=== PATIENT | male | born 1960 | race Caucasian/White ===

== ENCOUNTER 2020-12-06 09:06 | Observation (INO) ==
--- NOTE | 2020-12-06 09:45 | DR.URIAD ---
HPI Time Seen Time Seen by Provider: 12/06/20 09:42 PCP Primary Care Physician: Margarita TORO HPI Comment HPI Comment: PATIENT IS 60YR OLD MALE IN ER WITH INCREASING SOB, COUGHAND CONGESTION TIMES 8 DAYS. TOOK ZPACK AND PREDNISONE AND COVID TEST DONE. WAS POSITIVE 2 DAYS LATER. CONTINUE TO HAVE FEVER ON AND OFF, GENERALIZED BODY ACHES, PRODUCTIVE COUGH, CLEAR SYMTOM AND GENERALIZED WEAKNESS. HISTORY SLEEP APNEA AND USES C-PAP AT NIGHT. Complaint Chief Complaint Doctors Comments: COUGH, CONGESTION, INCREASING SOB TIMES 8DAYS. COVID 19 VIRUS POSITIVE. Chief Complaint:: PT C/O COUGH AND LOW O2 SAT. HE IS COVID POSITIVE. SYMPTOMS STARTED 8 DAYS AGO AND POSITIVE RESULT WAS 6 DAYS AGO. PT STATES HE HAS A PAINFUL COUGH AND ONLY FEELS SHORT OF BREATH WHEN COUGHING. COVID-19 Coronavirus risk:travel/contact w/high risk person: No Has patient experienced Coronavirus symptoms: Yes Coronavirus symptoms experienced: Coughing Reviewed Nurses Notes Reviewed: Yes Source History Provided: Patient Mode of Arrival Mode of Arrival: Ambulatory Timing Onset of Chief Complaint: 11/27/20 Context Recent Treated Infections: URI History of Respiratory: None Quality Quality of Cough: Productive and Clear Rhinorrhea: Clear Shortness of Breath: Moderate Associated Signs and Symptoms Other Signs and Symptoms: Cough, Fever, Myalgias, Nasal Symptoms, Nausea, Shortness of Breath and URI Other History Other History: HISTORY SLEEP APNEA. PMH PMH Past Medical History: No Past Medical History: Hypertension and Sleep Apnea Past Surgical History: No Family History History of Family Medical Conditions: No Social History Does patient currently use any type of tobacco product: No Have you used tobacco products in the last 12 months: No Type of Tobacco Use: None Does any household member use tobacco: No Alcohol Use: None Do you use any recreational Drugs:: No Lives With: Family Lives Where: Home Travel Risk Coronavirus risk:travel/contact w/high risk person: No Has patient experienced Coronavirus symptoms: Yes Coronavirus symptoms experienced: Coughing Infectious screening In the last 2 months have you had wt loss of >10#?: NO Have you had fever, night sweats or hemotysis?: No Have you traveled outside the country in the last 6 months?: No Isolation: Droplet ROS Review of Systems Constitutional: See HPI, Fever (ON AND OFF FEVER.), Weakness and Fatigue Eyes: No Symptoms Reported and See HPI ENTM: See HPI, Nose Discharge and Nose Congestion Respiratoy: See HPI, Productive Cough and Short of Breath; negative Wheezing Cardiovascular: No Symptoms Reported, See HPI and Chest Pain (PLEURIC CHEST PAIN.); negative Edema and Palpitations Gastrointestinal/Abdominal: See HPI and Nausea; negative Abdominal Pain, Diarrhea and Vomiting Genitourinary: No Symptoms Reported and See HPI; negative Dysuria, Frequency and Hematuria Neurological: See HPI, Headache and Weakness Musculoskeletal: See HPI and Muscle Pain; negative Back Pain Integumentary: No Symptoms Reported and See HPI; negative Change in Color, Rash and Juandice Hematologic/Lymphatic: No Symptoms Reported and See HPI; negative Easy Bruising and Swollen Glands Endocrine: No Symptoms Reported and See HPI; negative Increased Thirst and Increased Urine Psychiatric: No Symptoms Reported and See HPI All Other Systems: Reviewed and Negative PE Vital Signs Vitals: Temperature 98.7 F Pulse Rate 62 Respiratory Rate 20 Blood Pressure 158/72 O2 Sat by Pulse Oximetry 94 General Limitations: No Limitations General Appearance: Alert and In No Apparent Distress Head Head Exam: Normal Inspection and Atraumatic Eyes Eye exam: Normal Appearance and PERRL ENT ENT Exam: Normal Exam, Normal Oropharynx, Normal External Ear Exam and TM's Normal Bilaterally External Ear Exam: Normal External Inspection; negative Mastoid Tenderness TM/Canal Exam: Bilateral: Normal Nose Exam: Normal Nose Exam Mouth Exam: Normal Inspection; negative Lip Swelling and Tongue Swelling Throat Exam: Normal Inspection and Tonsillar Erythema; negative Tonsillomegaly and Tonsillar Exudate Neck Neck Exam: Normal Inspection and Trachea Midline; negative Tenderness and Lymphadenopathy Chest Chest Inspection: Normal Inspection; negative Symmetric Chest Wall Rise, Tenderness and Abscess Respiratory Respiratory Exam: Normal Lung Sounds Bilat Respiratory Exam: Bilateral: Rhonchi and Lower: Rhonchi Cardiovascular Cardiovascular Exam: Regular Rate, Normal Rhythm, Normal Heart Sounds, Systolic Murmur and Diastolic Murmur Abdominal Exam Abdominal Exam: Normal Inspection, Normal Bowel Sounds and Soft; negative Tenderness Extremeties Extremities Exam: Normal Inspection and Normal Capillary Refill; negative Tenderness, Edema and Calf Tenderness Back Back Exam: Normal Inspection; negative (R) CVA Tenderness and (L) CVA Tenderness Neurologic Neurological Exam: Alert, Oriented X3 and CN II-XII Intact; negative Motor Sensory Deficit Psychiatric Psychiatric Exam: Normal Affect and Normal Mood Skin Skin Exam: Warm, Dry, Intact and Normal Color MDM Additional Information Additional Information Obtained From: Family Differential Diagnosis Differential Diagnosis: Pneumonia (COVID 19 VIRUS INFECTION, PULMONARY EMBOLISM. CHEST WALL PAIN), Sinsusitis and URI COURSE Treatment Treatment: SEE ORDERS. Consultation Consultation Comments: DISCUSSED PATIENTWITH DR. REED. HE WILL ADMIT PATIENT. Education/Counseling Education/Counseling: Patient Educated On: Diagnosis ROR Labs Reviewed Laboratory Results Reviewed?: Yes Result Diagrams: 12/09/20 04:20 12/09/20 04:20 Laboratory: WBC 7.3 X10^3/uL (3.6-10.0) 12/06/20 10:07 RBC 4.94 X10^6/uL (4.7-6.0) 12/06/20 10:07 Hgb 14.3 g/dL (13.5-18.0) 12/06/20 10:07 Hct 42.2 % (42.0-54.0) 12/06/20 10:07 MCV 85.5 fL (80.0-100.0) 12/06/20 10:07 MCH 28.9 pg (27.0-34.0) 12/06/20 10:07 MCHC 33.9 g/dL (33.0-35.0) 12/06/20 10:07 RDW 12.9 % (11.6-16.5) 12/06/20 10:07 Plt Count 237 X10^3/uL (150.0-450.0) 12/06/20 10:07 MPV 8.5 fL (7.4-11.0) 12/06/20 10:07 Neut % (Auto) 72.2 % (42.0-75.0) 12/06/20 10:07 Lymph % (Auto) 15.2 % (21.0-51.0) L 12/06/20 10:07 Saunders % (Auto) 10.9 % (0.0-13.0) 12/06/20 10:07 Eos % (Auto) 0.8 % (0.9-2.9) L 12/06/20 10:07 Baso % (Auto) 0.9 % (0.2-1.0) 12/06/20 10:07 Neut # (Auto) 5.3 x10^3/uL (2.2-4.8) H 12/06/20 10:07 Lymph # (Auto) 1.1 X10^3/uL (1.3-2.9) L 12/06/20 10:07 Saunders # (Auto) 0.8 x10^3/uL (0.3-0.8) 12/06/20 10:07 Eos # (Auto) 0.1 x10^3/uL (0.0-0.2) 12/06/20 10:07 Baso # (Auto) 0.1 X10^3/uL (0.0-0.1) 12/06/20 10:07 Absolute Nucleated RBC 0.1 /100WBC 12/06/20 10:07 PT 14.5 SECONDS (11.8-14.3) 12/06/20 10:07 INR Target Range - 12/06/20 10:07 INR 1.18 (0.8-1.3) 12/06/20 10:07 APTT 31.5 SECONDS (22.9-36.5) 12/06/20 10:07 PTT Comment - 12/06/20 10:07 D-Dimer 0.78 ug/ml (0.0-0.57) H* 12/06/20 10:07 Sample Site Rr 12/06/20 10:00 ABG pH 7.490 (7.35-7.45) H 12/06/20 10:00 ABG pCO2 39.0 mmHg (35.0-45.0) 12/06/20 10:00 ABG pO2 53.0 mmHg (80.0-100.0) L 12/06/20 10:00 ABG HCO3 29.7 mmol/L (22-26) H 12/06/20 10:00 ABG O2 Saturation 90.0 % (90-100) 12/06/20 10:00 ABG Base Excess 5.9 mmol/L (-2.0-2.0) H 12/06/20 10:00 Marvel Test Pos 12/06/20 10:00 A-a Gradient 48.0 mmHg 12/06/20 10:00 FiO2 21.0 12/06/20 10:00 Blood Gas Comments Jong well, kh 12/06/20 10:00 Sodium 139 mmol/L (136-145) 12/06/20 10:07 Corrected Sodium TNP 12/06/20 10:07 Potassium 4.0 mmol/L (3.5-5.1) 12/06/20 10:07 Chloride 101 mmol/L (98-107) 12/06/20 10:07 Carbon Dioxide 31.5 mmol/L (21-32) 12/06/20 10:07 BUN 23 mg/dL (7-18) H 12/06/20 10:07 Creatinine 1.20 mg/dL (0.70-1.30) 12/06/20 10:07 Est GFR (MDRD) Af Amer > 60 (>60) 12/06/20 10:07 Est GFR (MDRD) Non-Af > 60 (>60) 12/06/20 10:07 Glucose 104 mg/dL (65-99) H 12/06/20 10:07 Calcium 8.5 mg/dL (8.5-10.1) 12/06/20 10:07 Corrected Calcium 9.4 mg/dL (8.5-10.1) 12/06/20 10:07 Ferritin > 1000 ng/mL (26-388) H 12/06/20 10:07 Total Bilirubin 0.80 mg/dL (0.2-1.0) 12/06/20 10:07 AST 28 Units/L (15-37) 12/06/20 10:07 ALT 43 Units/L (12-78) 12/06/20 10:07 Alkaline Phosphatase 37 Units/L (46-116) L 12/06/20 10:07 Lactate Dehydrogenase 262 Units/L (85-227) H 12/06/20 10:07 Creatine Kinase 223 Units/L (39-308) 12/06/20 11:29 CK-MB (CK-2) < 1.0 ng/mL (0-4.0) 12/06/20 11:29 CK/CKMB % Calc 0.5 % (<4) 12/06/20 11:29 Troponin I < 0.02 ng/mL (0-1.5) 12/06/20 11:29 C-Reactive Protein 62.10 mg/L (0-3.0) H 12/06/20 10:07 Total Protein 7.3 g/dL (6.4-8.2) 12/06/20 10:07 Albumin 2.9 g/dL (3.4-5.0) L 12/06/20 10:07 Globulin 4.4 g/dL (2.5-4.5) 12/06/20 10:07 Albumin/Globulin Ratio 0.7 Ratio (1.1-2.1) L 12/06/20 10:07 Specimen Type Random urine 12/06/20 11:30 Urine Color Yellow (YELLOW) 12/06/20 11:30 Urine Appearance Clear (CLEAR) 12/06/20 11:30 Urine pH 8.0 (5.0 - 8.0) 12/06/20 11:30 Ur Specific [place] 1.010 (1.000-1.030) 12/06/20 11:30 Urine Protein 1+ (NEGATIVE) 12/06/20 11:30 Urine Glucose (UA) Negative (NEGATIVE) 12/06/20 11:30 Urine Ketones Negative (NEGATIVE) 12/06/20 11:30 Urine Occult Blood Negative (NEGATIVE) 12/06/20 11:30 Urine Nitrite Negative (NEGATIVE) 12/06/20 11:30 Urine Bilirubin Negative (NEGATIVE) 12/06/20 11:30 Urine Urobilinogen Normal (NORMAL) 12/06/20 11:30 Ur Leukocyte Esterase Negative (NEGATIVE) 12/06/20 11:30 Urine RBC 0-2 /HPF (0-3) 12/06/20 11:30 Urine WBC 0-2 /HPF (0-5) 12/06/20 11:30 Ur Squamous Epith Cells Rare /HPF (NEGATIVE) 12/06/20 11:30 Urine Bacteria Negative /HPF (NEGATIVE) 12/06/20 11:30 Ur Culture Indicated? No/not indicated 12/06/20 11:30 XRAY XRAY Interpreted by: Radiologist (REPORT NOTED AND DISCUSSED WITH PATIENT. ) and Self EKG Rate: 60 [place]: Normal Rhythm: NSR Block: None Hypertrophy: None ST: Normal Opioid Opioid Risk Tool Age (Antony box if 16-45): No History of Preadolescent Sexual Abuse: No Total: 0 Total Score Risk Category: Low Risk Copyright: [facility] predicting aberrant behaviors Diagnosis Discharge Problem: Pneumonia due to COVID-19 virus, Acute respiratory distress, Hypoxia Instructions Instructions: Shortness of Breath, Adult, Fuht-dj-Gxgh Incentive Spirometer Viral Respiratory Infection, Ephs-Vi-Vkif Home Oxygen Use, Adult Hand Washing, Vsth-vz-Ivmy Upper Respiratory Infection, Adult, Rbcc-ga-Gofg Droplet Precautions, Jnwa-gc-Rjir Contact Precautions, Wzva-ow-Utyp Cough, Adult You've Been Prescribed an Antibiotic in the Hospital for an Infection - [facility] (12/2017) Managing Your Hypertension Tobacco Use Disorder Steps to Quit Smoking Forms: Excuse From Work or School Precautions for COVID19 Patient Portal Social Distancing
[2020-12-06 10:11] LABS: ABG BASE EXCESS 5.9 mmol/L (-2.0-2.0); ABG HCO3 29.7 mmol/L (22-26)
[2020-12-06 10:12] LABS: ABG ALLEN TEST POS
[2020-12-06 10:18] LABS: BASOPHILS # (AUTO) 0.1 X10^3/uL (0.0-0.1); BASOPHILS % (AUTO) 0.9 % (0.2-1.0); EOSINOPHILS # (AUTO) 0.1 x10^3/uL (0.0-0.2); EOSINOPHILS % (AUTO) 0.8 % (0.9-2.9); HEMATOCRIT 42.2 % (42.0-54.0); HEMOGLOBIN 14.3 g/dL (13.5-18.0); LYMPHOCYTES # (AUTO) 1.1 X10^3/uL (1.3-2.9); LYMPHOCYTES % (AUTO) 15.2 % (21.0-51.0); MEAN CORPUSCULAR HEMOGLOBIN 28.9 pg (27.0-34.0); MEAN CORPUSCULAR HGB CONC 33.9 g/dL (33.0-35.0); MEAN CORPUSCULAR VOLUME 85.5 fL (80.0-100.0); MEAN PLATELET VOLUME 8.5 fL (7.4-11.0); MONOCYTES # (AUTO) 0.8 x10^3/uL (0.3-0.8); MONOCYTES % (AUTO) 10.9 % (0.0-13.0); NEUTROPHILS # (AUTO) 5.3 x10^3/uL (2.2-4.8); NEUTROPHILS % (AUTO) 72.2 % (42.0-75.0); PLATELET COUNT 237 X10^3/uL (150.0-450.0); RED BLOOD COUNT 4.94 X10^6/uL (4.7-6.0); RED CELL DISTRIBUTION WIDTH 12.9 % (11.6-16.5); WHITE BLOOD COUNT 7.3 X10^3/uL (3.6-10.0)
[2020-12-06 10:28] LABS: ALANINE AMINOTRANSFERASE 43 Units/L (12-78); ALBUMIN 2.9 g/dL (3.4-5.0); ALKALINE PHOSPHATASE 37 Units/L (46-116); ASPARTATE AMINO TRANSFERASE 28 Units/L (15-37); BLOOD UREA NITROGEN 23 mg/dL (7-18); CALCIUM 8.5 mg/dL (8.5-10.1); CARBON DIOXIDE 31.5 mmol/L (21-32); CHLORIDE 101 mmol/L (98-107); COR CA(FOR HYPOALB) 9.4 mg/dL (8.5-10.1); LACTATE DEHYDROGENASE 262 Units/L (85-227); SODIUM 139 mmol/L (136-145); TOTAL PROTEIN 7.3 g/dL (6.4-8.2); eGFR NON BLACK RACES > 60 (>60)
[2020-12-06] MEDS ORDERED: NS 100 ML IV 100 ML IV ONE (10:44)
--- NOTE | 2020-12-06 11:26 | RAD ---
HISTORYCOVID, SOB, COUGH, CONGESTIONSTUDYCHEST, 1 VIEWCOMPARISONNoneFINDINGSThe trachea is midline. The cardiac silhouette is unremarkable . The lungs are clear without focal infiltrate or effusion. The bony thorax is unremarkable.IMPRESSIONNo acute cardiopulmonary abnormalities.Electronically signed by: CORBY GRIER (Dec 06, 2020 11:24:04)
[2020-12-06 11:41] LABS: BILIRUBIN,URINE NEGATIVE (NEGATIVE); BLOOD/HEMOGLOBIN,URINE NEGATIVE (NEGATIVE); GLUCOSE, URINE NEGATIVE (NEGATIVE); KETONES,URINE NEGATIVE (NEGATIVE); LEUKOCYTE ESTERASE ,URINE NEGATIVE (NEGATIVE); NITRITES,URINE NEGATIVE (NEGATIVE); PROTEIN,URINE 1+ (NEGATIVE); UROBILINOGEN,URINE NORMAL (NORMAL)
[2020-12-06 11:50] LABS: APPEARANCE,URINE CLEAR (CLEAR); BACTERIA,URINE NEGATIVE /HPF (NEGATIVE); COLOR,URINE YELLOW (YELLOW); RBC,URINE 0-2 /HPF (0-3); SQUAMOUS EPITHELIAL CELL,UR RARE /HPF (NEGATIVE)
[2020-12-06 11:58] LABS: CKMB % 0.5 % (<4); CREATINE KINASE MB < 1.0 ng/mL (0-4.0); TROPONIN I < 0.02 ng/mL (0-1.5)
--- NOTE | 2020-12-06 11:59 | CT ---
HISTORYCOVID, SOB/CHEST PAINSTUDYCTA CHESTCOMPARISONChest radiograph performed earlier the same day.TECHNIQUEMultiple axial images of the chest were obtained from the thoracic inlet to the upper abdomen after the administration of IV contrast. 3D reconstructions utilizing axial MIPS imaging was performed and reviewed. Dose reduction techniques including Automated Exposure Control (AEC) and adjustment of mA and kV were utilized.FINDINGSThere is no filling defect seen within the mainstem or right or left pulmonary arteries. The subsegmental arteries demonstrate artifact from motion. The lungs demonstrate peripheral ground-glass opacities bilaterally with lower lobe atelectasis. The airway is patent throughout. There is no pleural effusion. The mediastinum shows shoddy but non enlarge lymph nodes. The axillary shows no lymphadenopathy. Heart size is normal in appearance. Images of the upper abdomen are unremarkable except for small hiatal hernia. The subcutaneous tissues are unremarkable. The bone windows demonstrate mild discogenic degenerative disease without aggressive lesion.Conclusion:1. No evidence pulmonary thromboemboli.2. Bilateral predominantly peripheral lung ground-glass opacities is consistent with infection.Electronically signed by: WARREN CERVANTES (Dec 06, 2020 11:58:10)
[2020-12-06 12:01] LABS: CREATINE KINASE 223 Units/L (39-308)
[2020-12-06] MEDS ORDERED: REMDESIVIR 200 MG in NS 250 ML IV 250 ML IV NR (14:22)
[2020-12-06] MEDS ORDERED: PHARMACY CONSULT - IVERMECTIN XX SCH (14:22)
[2020-12-06 14:57] VITALS: BMI 36.1
[2020-12-06] MEDS: NS 1000 ML 1,000 ML IV SCH (15:49)
[2020-12-06] MEDS: ASCORBIC ACID INJ MULTI-DOSE VIAL 1,500 MG in NS 100 ML IV 100 ML IV SCH ×2 (15:50→20:31)
[2020-12-06] MEDS: LOVENOX INJ 30 MG SYR SC SCH (20:32)
[2020-12-06] MEDS: MELATONIN PO SCH (20:33)
[2020-12-06] MEDS: PEPCID TAB 40 MG PO SCH (20:33)
[2020-12-06] MEDS: ZINC SULFATE PO SCH (20:33)
[2020-12-06] MEDS: VIBRAMYCIN PO SCH (20:33)
[2020-12-06] MEDS: BROVANA IN SCH (21:05)
[2020-12-06] MEDS: PULMICORT NEB TX 0.5 MG NEB SCH (21:12)
[2020-12-06] MEDS: THIAMINE HCL INJ IVP SCH (21:24)
[2020-12-07] MEDS: ASCORBIC ACID INJ MULTI-DOSE VIAL 1,500 MG in NS 100 ML IV 100 ML IV SCH ×4 (04:45→20:05)
[2020-12-07 05:00] LABS: BASOPHILS % (AUTO) 0.7 % (0.2-1.0); EOSINOPHILS # (AUTO) 0.1 x10^3/uL (0.0-0.2); EOSINOPHILS % (AUTO) 1.7 % (0.9-2.9); HEMATOCRIT 39.8 % (42.0-54.0); HEMOGLOBIN 13.1 g/dL (13.5-18.0); LYMPHOCYTES # (AUTO) 1.7 X10^3/uL (1.3-2.9); LYMPHOCYTES % (AUTO) 24.6 % (21.0-51.0); MEAN CORPUSCULAR HEMOGLOBIN 28.5 pg (27.0-34.0); MEAN CORPUSCULAR HGB CONC 32.8 g/dL (33.0-35.0); MEAN CORPUSCULAR VOLUME 86.7 fL (80.0-100.0); MEAN PLATELET VOLUME 8.9 fL (7.4-11.0); MONOCYTES # (AUTO) 0.9 x10^3/uL (0.3-0.8); MONOCYTES % (AUTO) 13.4 % (0.0-13.0); NEUTROPHILS % (AUTO) 59.6 % (42.0-75.0); PLATELET COUNT 232 X10^3/uL (150.0-450.0); RED BLOOD COUNT 4.59 X10^6/uL (4.7-6.0); RED CELL DISTRIBUTION WIDTH 12.9 % (11.6-16.5); WHITE BLOOD COUNT 6.7 X10^3/uL (3.6-10.0)
[2020-12-07 05:13] LABS: ALANINE AMINOTRANSFERASE 33 Units/L (12-78); ALBUMIN 2.5 g/dL (3.4-5.0); ALKALINE PHOSPHATASE 31 Units/L (46-116); ASPARTATE AMINO TRANSFERASE 24 Units/L (15-37); BLOOD UREA NITROGEN 22 mg/dL (7-18); CARBON DIOXIDE 26.5 mmol/L (21-32); CHLORIDE 104 mmol/L (98-107); COR CA(FOR HYPOALB) 9.2 mg/dL (8.5-10.1); COR NA(FOR HYPERGLY) 139 mmol/L (136-145); CREATININE 1.14 mg/dL (0.70-1.30); SODIUM 139 mmol/L (136-145); TOTAL PROTEIN 6.4 g/dL (6.4-8.2); eGFR NON BLACK RACES > 60 (>60)
[2020-12-07] MEDS: LOVENOX INJ 30 MG SYR SC SCH (08:50)
[2020-12-07] MEDS: IVERMECTIN PO SCH (08:50)
[2020-12-07] MEDS: LIPITOR TAB 80 MG PO SCH (08:50)
[2020-12-07] MEDS: THIAMINE HCL INJ IVP SCH ×2 (08:51→20:06)
[2020-12-07] MEDS: PEPCID TAB 40 MG PO SCH ×2 (08:51→20:07)
[2020-12-07] MEDS: TRICOR TAB 160 MG PO SCH (08:51)
[2020-12-07] MEDS: REMDESIVIR 100 MG in NS 250 ML IV 250 ML IV SCH (08:51)
[2020-12-07] MEDS: VIBRAMYCIN PO SCH ×2 (08:51→20:06)
[2020-12-07] MEDS: ZINC SULFATE PO SCH ×2 (08:52→20:06)
[2020-12-07] MEDS ORDERED: VITAMIN D (1.25MG) PO SCH (09:00)
[2020-12-07] MEDS ORDERED: DECADRON TAB PO SCH (09:00)
[2020-12-07] MEDS ORDERED: VITAMIN A PO SCH (09:00)
[2020-12-07] MEDS: PULMICORT NEB TX 0.5 MG NEB SCH ×2 (09:43→20:15)
[2020-12-07] MEDS: BROVANA IN SCH ×2 (09:43→20:10)
[2020-12-07] MEDS: SOLU-Medrol 40 MG VIAL IVP SCH ×2 (10:29→20:06)
[2020-12-07] MEDS: ROBITUSSIN DM PO PRN ×2 (12:32→20:07)
[2020-12-07] MEDS: NS 1000 ML 1,000 ML IV SCH (15:08)
[2020-12-07] MEDS ORDERED: LOVENOX INJ 120 MG SYR SC ONE (19:53)
[2020-12-07] MEDS: LOVENOX INJ 120 MG SYR SC SCH (20:05)
[2020-12-07] MEDS: MELATONIN PO SCH (20:06)
[2020-12-07] MEDS: NORVASC TAB 5 MG PO SCH ×2 (20:06→21:39)
[2020-12-07] MEDS ORDERED: STERILE WATER IRRIGATION IR ONE (20:30)
[2020-12-08] MEDS: ASCORBIC ACID INJ MULTI-DOSE VIAL 1,500 MG in NS 100 ML IV 100 ML IV SCH ×4 (02:52→20:15)
[2020-12-08 04:34] LABS: MONOCYTES # (AUTO) 0.7 x10^3/uL (0.3-0.8); RED CELL DISTRIBUTION WIDTH 12.5 % (11.6-16.5)
[2020-12-08 04:40] LABS: BASOPHILS % (AUTO) 0.5 % (0.2-1.0); HEMATOCRIT 38.1 % (42.0-54.0); HEMOGLOBIN 12.7 g/dL (13.5-18.0); LYMPHOCYTES % (AUTO) 16.5 % (21.0-51.0); MEAN CORPUSCULAR HEMOGLOBIN 28.6 pg (27.0-34.0); MEAN CORPUSCULAR HGB CONC 33.2 g/dL (33.0-35.0); MEAN PLATELET VOLUME 8.8 fL (7.4-11.0); MONOCYTES % (AUTO) 11.1 % (0.0-13.0); NEUTROPHILS # (AUTO) 4.3 x10^3/uL (2.2-4.8); NEUTROPHILS % (AUTO) 71.9 % (42.0-75.0); PLATELET COUNT 256 X10^3/uL (150.0-450.0); RED BLOOD COUNT 4.43 X10^6/uL (4.7-6.0)
[2020-12-08 04:44] LABS: ALANINE AMINOTRANSFERASE 35 Units/L (12-78); ALBUMIN 2.4 g/dL (3.4-5.0); ALKALINE PHOSPHATASE 32 Units/L (46-116); ASPARTATE AMINO TRANSFERASE 24 Units/L (15-37); BLOOD UREA NITROGEN 24 mg/dL (7-18); CARBON DIOXIDE 26.1 mmol/L (21-32); CHLORIDE 104 mmol/L (98-107); COR CA(FOR HYPOALB) 9.3 mg/dL (8.5-10.1); COR NA(FOR HYPERGLY) 140 mmol/L (136-145); CREATININE 1.15 mg/dL (0.70-1.30); SODIUM 138 mmol/L (136-145); TOTAL PROTEIN 6.4 g/dL (6.4-8.2); eGFR NON BLACK RACES > 60 (>60)
[2020-12-08 05:58] LABS: GIANT PLATELET FEW; PLATELET MORPHOLOGY COMMENT ABNORMAL (NORMAL)
[2020-12-08] MEDS ORDERED: ZESTRIL TAB 20 MG ONE (08:02)
[2020-12-08] MEDS: LOVENOX INJ 120 MG SYR SC SCH ×2 (08:44→20:15)
[2020-12-08] MEDS: LIPITOR TAB 80 MG PO SCH (08:44)
[2020-12-08] MEDS: IVERMECTIN PO SCH (08:44)
[2020-12-08] MEDS: REMDESIVIR 100 MG in NS 250 ML IV 250 ML IV SCH (08:45)
[2020-12-08] MEDS: PEPCID TAB 40 MG PO SCH ×2 (08:45→20:18)
[2020-12-08] MEDS: SOLU-Medrol 40 MG VIAL IVP SCH ×2 (08:45→20:16)
[2020-12-08] MEDS: TRICOR TAB 160 MG PO SCH (08:45)
[2020-12-08] MEDS: THIAMINE HCL INJ IVP SCH ×2 (08:45→20:17)
[2020-12-08] MEDS: ZINC SULFATE PO SCH ×2 (08:46→20:17)
[2020-12-08] MEDS: VIBRAMYCIN PO SCH ×2 (08:46→20:17)
[2020-12-08] MEDS: ZESTRIL TAB 20 MG PO SCH (08:46)
[2020-12-08] MEDS: VITAMIN D3 125 mcg (5,000 UNITS) PO SCH (08:46)
[2020-12-08] MEDS: BROVANA IN SCH ×2 (09:36→20:37)
[2020-12-08] MEDS: PULMICORT NEB TX 0.5 MG NEB SCH ×2 (09:36→20:30)
[2020-12-08] MEDS: NS 1000 ML 1,000 ML IV SCH (16:05)
[2020-12-08] MEDS: MELATONIN PO SCH (20:17)
[2020-12-08] MEDS: NORVASC TAB 5 MG PO SCH (20:17)
[2020-12-09 04:40] LABS: BASOPHILS # (AUTO) 0.1 X10^3/uL (0.0-0.1); BASOPHILS % (AUTO) 0.8 % (0.2-1.0); HEMATOCRIT 38.4 % (42.0-54.0); HEMOGLOBIN 12.6 g/dL (13.5-18.0); LYMPHOCYTES # (AUTO) 1.4 X10^3/uL (1.3-2.9); LYMPHOCYTES % (AUTO) 11.3 % (21.0-51.0); MEAN CORPUSCULAR HEMOGLOBIN 28.2 pg (27.0-34.0); MEAN CORPUSCULAR HGB CONC 32.7 g/dL (33.0-35.0); MEAN CORPUSCULAR VOLUME 86.3 fL (80.0-100.0); MEAN PLATELET VOLUME 9.2 fL (7.4-11.0); MONOCYTES # (AUTO) 0.6 x10^3/uL (0.3-0.8); MONOCYTES % (AUTO) 4.5 % (0.0-13.0); NEUTROPHILS # (AUTO) 10.6 x10^3/uL (2.2-4.8); NEUTROPHILS % (AUTO) 83.4 % (42.0-75.0); PLATELET COUNT 284 X10^3/uL (150.0-450.0); RED BLOOD COUNT 4.45 X10^6/uL (4.7-6.0); RED CELL DISTRIBUTION WIDTH 12.6 % (11.6-16.5); WHITE BLOOD COUNT 12.7 X10^3/uL (3.6-10.0)
[2020-12-09 04:48] LABS: ALANINE AMINOTRANSFERASE 31 Units/L (12-78); ALBUMIN 2.4 g/dL (3.4-5.0); ALKALINE PHOSPHATASE 28 Units/L (46-116); ASPARTATE AMINO TRANSFERASE 22 Units/L (15-37); BLOOD UREA NITROGEN 25 mg/dL (7-18); CALCIUM 8.1 mg/dL (8.5-10.1); CARBON DIOXIDE 25.9 mmol/L (21-32); CHLORIDE 106 mmol/L (98-107); COR CA(FOR HYPOALB) 9.4 mg/dL (8.5-10.1); COR NA(FOR HYPERGLY) 141 mmol/L (136-145); CREATININE 1.19 mg/dL (0.70-1.30); SODIUM 139 mmol/L (136-145); TOTAL PROTEIN 6.1 g/dL (6.4-8.2); eGFR NON BLACK RACES > 60 (>60)
[2020-12-09] MEDS: ASCORBIC ACID INJ MULTI-DOSE VIAL 1,500 MG in NS 100 ML IV 100 ML IV SCH ×2 (05:00→08:17)
[2020-12-09] MEDS ORDERED: ZESTRIL TAB 20 MG ONE (07:32)
[2020-12-09 08:12] VITALS: BP 153/65
[2020-12-09] MEDS: PEPCID TAB 40 MG PO SCH (08:15)
[2020-12-09] MEDS: ZINC SULFATE PO SCH (08:15)
[2020-12-09] MEDS: VITAMIN D3 125 mcg (5,000 UNITS) PO SCH (08:16)
[2020-12-09] MEDS: VIBRAMYCIN PO SCH (08:16)
[2020-12-09] MEDS: TRICOR TAB 160 MG PO SCH (08:16)
[2020-12-09] MEDS: LIPITOR TAB 80 MG PO SCH (08:16)
[2020-12-09] MEDS: ZESTRIL TAB 20 MG PO SCH (08:17)
[2020-12-09] MEDS: SOLU-Medrol 40 MG VIAL IVP SCH (08:17)
[2020-12-09] MEDS: IVERMECTIN PO SCH (08:17)
[2020-12-09] MEDS: REMDESIVIR 100 MG in NS 250 ML IV 250 ML IV SCH (08:18)
[2020-12-09] MEDS: THIAMINE HCL INJ IVP SCH (08:18)
[2020-12-09] MEDS: LOVENOX INJ 120 MG SYR SC SCH (08:19)
[2020-12-09] MEDS: BROVANA IN SCH (09:35)
[2020-12-09] MEDS: PULMICORT NEB TX 0.5 MG NEB SCH (09:45)
== END 2020-12-09 11:35 | disposition home or self-care (01) ==
LOC: ICU 09:12 → ER 09:12 → ICU 14:22
PROVIDERS: ADMIT Obstetrics & Gynecology Obstetrics; ATTEND Obstetrics & Gynecology Obstetrics
DX: J12.82 Pneumonia due to coronavirus disease 2019; R79.89 Other specified abnormal findings of blood chemistry; U07.1 COVID-19; R79.1 Abnormal coagulation profile; R79.82 Elevated C-reactive protein (CRP); R06.02 Shortness of breath; I10 Essential (primary) hypertension